=== PATIENT | male | born 1960 | race Caucasian/White ===

== ENCOUNTER 2016-05-15 10:44 | Emergency (ER) | payer OTHER, MEDICAID ==
[~2016-05-15] VITALS: Ht 76.2 cm; Wt 70.9 kg
[~2016-05-15 10:44] MED LIST: CIPR500T4 PO; GLIP5TAB13 PO; HYDR-902 PO; LANS30CA47 PO; METR500T PO; ONDA4TAB14 PO
[2016-05-15 10:47] VITALS: Ht 76.2 cm; Wt 70.9 kg
[2016-05-15] MEDS ORDERED: IBUP400T22 PO (11:16)
[2016-05-15] MEDS ORDERED: BACL10TA PO (11:17)
[2016-05-15] MEDS ORDERED: TRAM50TA2 PO (11:17)
--- NOTE | 2016-05-15 11:23 | ERD ---
ER Documentation Chief Complaint Date/Time DATE: 05/15/16 TIME: 11:17 Chief Complaint non traumatic neck and shoulder pain for the past month. no motor deficit HPI Patient is a 55-year-old male with a past medical history of diabetes, hypertension who presents to the emergency department with 1 months of neck and shoulder pain. Patient states the pain is localized to his left neck and left shoulder. Patient denies any trauma or falls. Patient denies any fever, chills , nausea, vomiting. Patient denies any unilateral arm or leg weakness, slurred speech or difficulty ambulating. Patient states the pain is worse at night. Patient states he has been taking naproxen does help with his symptoms however it makes him feel nauseous. Patient denies any saddle anesthesia, urinary incontinence, stool incontinence, history of cancer. Patient does complain of some mild left-sided upper chest pain however he denies any radiation of the pain down his arm, shortness of breath, or loss of consciousness. ROS All systems reviewed and are negative except as per history of present illness. Medications Home Meds Active Scripts Tramadol HCl (Tramadol HCl) 50 Mg Tablet, 50 MG PO Q4 Y for PAIN, #12 TAB Prov:LEO DUVAL PA-C 05/15/16 Baclofen* (Baclofen*) 10 Mg Tablet, 10 MG PO Q8, #12 TAB Prov:LEO DUVAL PA-C 05/15/16 Ibuprofen* (Motrin*) 400 Mg Tab, 400 MG PO Q6, #30 TAB Prov:LEO DUVAL PA-C 05/15/16 Ondansetron (Ondansetron Odt) 4 Mg Tab.rapdis, 4 MG PO Q6H Y for NAUSEA AND/OR VOMITING, #30 TAB Prov:ELSA MCPHERSON MD 12/20/15 Hydrocodone/Acetaminophen ([place] 10-325 Tablet) 1 Each Tablet, 1 TAB PO Q6H Y for PAIN, #7 TAB Prov:ELSA MCPHERSON MD 12/20/15 Metronidazole* (Flagyl*) 500 Mg Tablet, 500 MG PO TID for 7 Days, TAB Prov:ELSA MCPHERSON MD 12/20/15 Ciprofloxacin Hcl* (Ciprofloxacin Hcl*) 500 Mg Tablet, 500 MG PO BID for 7 Days , TAB Prov:ELSA MCPHERSON MD 10/21/16 Lansoprazole* (Prevacid*) 30 Mg Capsule., 30 MG PO DAILY, #30 Prov:RAMAN CARVAJAL MD 09/02/15 Reported Medications Glipizide* (Glipizide*) 5 Mg Tablet, 5 MG PO BID 09/10/12 Allergies Allergies: Coded Allergies: No Known Allergies (Verified Allergy, Mild, 09/02/15) PMhx/Soc History of Surgery: No Anesthesia Reaction: No Hx Neurological Disorder: No Hx Respiratory Disorders: No Hx Cardiac Disorders: Yes (HTN ) Hx Psychiatric Problems: No Hx Miscellaneous Medical Probl: No Hx Alcohol Use: No Hx Substance Use: No Hx Tobacco Use: No Physical Exam Vitals Vital Signs Date Time Temp Pulse Resp B/P Pulse Ox O2 Delivery O2 Flow Rate FiO2 05/15/16 10:47 98.5 80 20 134/77 100 Physical Exam GENERAL: Well-developed, well-nourished male. Appears in no acute distress. Speaking in full sentences HEAD: Normocephalic, atraumatic. No deformities or ecchymosis. EYE: Pupils equal, round, and reactive to light. EOMs intact. No conjunctival erythema. No eye discharge. ENT: External ear without any masses or tenderness. Auditory canals clear bilaterally. TM visualized bilaterally, non-erythematous, non-bulging. Nasal mucosa pink with no discharge. Oropharynx is pink without any tonsillar erythema or exudates. No uvula deviation. No kissing tonsils. NECK: Supple. No meningismus. Normal ROM of the neck. No neck stiffness noted. Left neck muscles tender to palpation. CHEST: Left upper chest tender to palpation. Pain is reproducible. LUNG: Clear to auscultation bilaterally. No rhonchi, wheezing, rales or coarse breath sounds. HEART: Regular rate and rhythm. No murmurs, rubs or gallops. ABDOMEN: Soft, nontender, and nondistended. Positive bowel sounds in all four quadrants. No rebound tenderness, no guarding. (-) McBurney's point tenderness. No CVA tenderness. : deferred BACK: No midline tenderness. Left-sided trapezius muscles tender to palpation. EXTREMITES: Equal pulses bilaterally. No peripheral clubbing, cyanosis or edema. No unilateral leg swelling. ] NEUROLOGIC: Alert and oriented x3, cooperative. Mood and affect appropriate to situation. Cranial nerves II through XII are grossly intact. Normal speech. Motor exam: 5/5 strength in upper and lower extremities. Sensory exam: Sensation intact to light touch on all four extremities. Cerebellar function exam: Rapid alternating movements intact. No dysmetria on [id number] test. Steady gait. No pronator drift. SKIN: Normal color. Warm and dry. No rashes or lesions. Procedures/MDM ED COURSE: The patient was stable throughout ED course. I kept the patient and/or family informed of laboratory and diagnostic imaging results throughout the ED course. EKG: Read by Dr. Mcpherson, attending physician. EKG shows normal sinus rhythm at a rate of 71 bpm No arrhythmias, acute ST elevations or T wave changes were noted. MEDICAL DECISION MAKING: This is a 55-year-old male who presents with left-sided neck pain and back pain 1 month. Patient denied any trauma. Patient denied any saddle anesthesia, urinary incontinence, stool incontinence, recent history of cancer. Vital signs were reviewed. Patient was afebrile. Full neuro exam was normal. Given that patient did have some chest pain, an EKG was obtained. EKG was within normal limits. Given the patient denied any trauma or recent falls, x-ray imaging was not obtained.. Given these findings, the patients presentation is most consistent with muscle strain versus spasms. I have a much lower clinical concern for whiplash injury, cervical spine injury, nerve injury, cauda equine syndrome, spinal fractures, epidural abscess, spinal metastases, osteomyelitis, aortic dissection, ruptured or leaking AA, DJD, sciatica, CVA, TIA, acute coronary syndrome, pericarditis, arrhythmia or neuro defects. PRESCRIPTIONS: Ibuprofen Baclofen Tramadol DISCHARGE: At this time, patient is stable for discharge and outpatient management. Heat pad use was advised to the patient. RICE therapy and ROM exercises were advised to avoid stiffness. I have instructed the patient to follow-up with his/ her primary care physician in 1-2 days. I have discussed with the patient the possibility of needing to see an software support specialist for further workup and imaging if the pain persists. I have instructed the patient to promptly return to the ER for any new or worsening symptoms including increased pain, swelling, warmth, urinary incontinence, stool incontinence, weakness or numbness. The patient and/or family expressed understanding of and agreement with this plan. All questions were answered. Home care instructions were provided. Departure Diagnosis: Primary Impression: Neck pain Additional Impression: Back pain Back pain location: back pain in unspecified location Chronicity: acute Back pain laterality: left Qualified Code: M54.9 - Acute left-sided back pain , unspecified back location Condition: Stable Patient Instructions: Back Pain (Acute Or Chronic) Referrals: COMMUNITY CLINICS YOU HAVE RECEIVED A MEDICAL SCREENING EXAM AND THE RESULTS INDICATE THAT YOU DO NOT HAVE A CONDITION THAT REQUIRES URGENT TREATMENT IN THE EMERGENCY DEPARTMENT. FURTHER EVALUATION AND TREATMENT OF YOUR CONDITION CAN WAIT UNTIL YOU ARE SEEN IN YOUR DOCTORS OFFICE WITHIN THE NEXT 1-2 DAYS. IT IS YOUR RESPONSIBILITY TO MAKE AN APPOINTMENT FOR FOLOW-UP CARE. IF YOU HAVE A PRIMARY DOCTOR --you should call your primary doctor and schedule an appointment IF YOU DO NOT HAVE A PRIMARY DOCTOR YOU CAN CALL OUR PHYSICIAN REFERRAL HOTLINE AT IF YOU CAN NOT AFFORD TO SEE A PHYSICIAN YOU CAN CHOSE FROM THE FOLLOWING [facility] [address] [facility] [address] [facility] [facility] [address] [facility] [address] [facility] [address] [facility]. [address] [facility] [facility] YOU HAVE RECEIVED A MEDICAL SCREENING EXAM AND THE RESULTS INDICATE THAT YOU DO NOT HAVE A CONDITION THAT REQUIRES URGENT TREATMENT IN THE EMERGENCY DEPARTMENT. FURTHER EVALUATION AND TREATMENT OF YOUR CONDITION CAN WAIT UNTIL YOU ARE SEEN IN YOUR DOCTORS OFFICE WITHIN THE NEXT 1-2 DAYS. IT IS YOUR RESPONSIBILITY TO MAKE AN APPOINTMENT FOR FOLOW-UP CARE. IF YOU HAVE A PRIMARY DOCTOR --you should call your primary doctor and schedule and appointment IF YOU DO NOT HAVE A PRIMARY DOCTOR YOU CAN CALL OUR PHYSICIAN REFERRAL HOTLINE AT . IF YOU CAN NOT AFFORD TO SEE A PHYSICIAN YOU CAN CHOSE FROM THE FOLLOWING [facility] [place] INSTITUTIONS: [facility] [id number] [place] [address] [facility] [place] [address] [place] [address] [facility] + [facility] [address] [place] [address] Additional Instructions: Llame al doctor MAANA y ace judy ANGEL LUIS PARA DENTRO DE 1-2 BOWER.Dgale a la secretaria que nosotros le instruimos hacer esta angel luis.Avise o llame si galaviz condicin se empeora antes de la angel luis. Regresa aqui si peor o no mejor. LEO DUVAL PA-C May 15, 2016 11:22
== END 2016-05-15 12:19 | disposition home or self-care (01) ==
LOC: FTE 10:44
DX: M54.2 Cervicalgia (principal); M54.9 Dorsalgia, unspecified; I10 Essential (primary) hypertension; E11.9 Type 2 diabetes mellitus without complications; Z79.84 Long term (current) use of oral hypoglycemic drugs
CPT/HCPCS: 93005

== ENCOUNTER 2018-04-18 14:51 | Emergency (ER) | payer MEDICAID, OTHER ==
[~2018-04-18 14:51] MED LIST changes: +BACL10TA PO; +HYDR-3980 PO; -HYDR-902 PO; +IBUP-1561 PO; +TRAM50TA2 PO
== END 2018-04-18 15:50 | disposition left against medical advice (07) ==
LOC: E/R 14:51
DX: Z53.21 Procedure and treatment not carried out due to patient leaving prior to being seen by health care provider (principal)